=== PATIENT | male | born 1995 | race Caucasian/White ===

== ENCOUNTER 2019-12-08 09:44 | Emergency (ER) | payer SELFPAY ==
[2019-12-08] MEDS ORDERED: Albuterol/Ipratropium 3.0-0.5 MG/3 ML Neb Soln NEB ONE (09:56)
--- NOTE | 2019-12-08 10:49 | EDM.PDOC ---
ED HPI GENERAL MEDICAL PROBLEM - General Chief Complaint: Respiratory Problem Stated Complaint: COUGH, SOB Time Seen by Provider: 12/08/19 10:02 Source of Information: Reports: Patient History Limitations: Reports: No Limitations - History of Present Illness INITIAL COMMENTS - FREE TEXT/NARRATIVE: Pt. presents to ER with complaints of productive cough and NAVARRO for several days. He states that he has had a severe cough. He has felt chilled but has not been checking his temp. He complains of sore throat and sinus congestion. No abdominal pain. No nausea, vomiting, or diarrhea. No rashes. Pt. states that he is a smoker. 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 He states that he has had similar symptoms in the past. He has never been diagnosed with asthma or COPD that he is aware of. Pt. denies any chest pain. Pt. was initially seen in clinic but was sent to ER for a "CT", presumably over concerns of PE. Pt. had no lab-work done at the clinic. Onset Date: 12/05/19 Location: Reports: Chest, Generalized Associated Symptoms: Reports: Cough, cough w sputum, Shortness of Breath (with exertion) - Related Data Allergies Allergy/AdvReac Type Severity Reaction Status Date / Time No Known Allergies Allergy Verified 12/08/19 09:53 Home Meds: Home Meds . [No Known Home Meds] 12/08/19 [History] ED ROS GENERAL - Review of Systems Review Of Systems: See Below Constitutional: Reports: No Symptoms, Fatigue HEENT: Reports: Rhinitis Respiratory: Reports: Cough Cardiovascular: Reports: Dyspnea on Exertion Endocrine: Reports: No Symptoms GI/Abdominal: Reports: No Symptoms : Reports: No Symptoms Musculoskeletal: Reports: No Symptoms Skin: Reports: No Symptoms Neurological: Reports: No Symptoms Psychiatric: Reports: No Symptoms Hematologic/Lymphatic: Reports: No Symptoms Immunologic: Reports: No Symptoms ED EXAM, GENERAL - Physical Exam Exam: See Below Exam Limited By: No Limitations General Appearance: Alert, WD/WN, No Apparent Distress Eye Exam: Bilateral Eye: Conjunctival Injection, EOMI, PERRL Nose: Normal Inspection, Normal Mucosa, No Blood Throat/Mouth: Normal Inspection, Normal Lips, Normal Teeth, Normal Gums, Normal Oropharynx, Normal Voice, No Airway Compromise Head: Atraumatic, Normocephalic Neck: Normal Inspection, Supple, Non-Tender, Full Range of Motion Respiratory/Chest: No Respiratory Distress, No Accessory Muscle Use, Chest Non- Tender, Decreased Breath Sounds, Wheezing Cardiovascular: Normal Peripheral Pulses, Regular Rate, Rhythm, No Edema, No Gallop, No JVD, No Murmur GI/Abdominal: Soft, Non-Tender, No Mass (Male) Exam: Deferred Rectal (Males) Exam: Deferred Extremities: Normal Inspection, Normal Range of Motion, Non-Tender, No Pedal Edema, Normal Capillary Refill Neurological: Alert, Oriented, CN II-XII Intact, Normal Cognition, Normal Gait, Normal Reflexes, No Motor/Sensory Deficits Course - Orders/Labs/Meds Orders: Active Orders 24 hr Category Date Time Status EKG Documentation Completion [RC] STAT Care 12/08/19 09:54 Active RT Aerosol Therapy [RC] ASDIRECTED Care 12/08/19 09:56 Active Labs: Laboratory Tests 12/08/19 12/08/19 12/08/19 Range/Units 09:55 10:28 10:28 WBC 9.7 (4.0-10.0) x10^3/uL RBC 5.09 (4.5-6.0) x10^6/uL Hgb 16.4 (14.0-18.0) g/dL Hct 46.2 (40.0-52.0) % MCV 90.8 (78.0-93.0) fL MCH 32.2 H (26.0-32.0) pg MCHC 35.5 (32.0-36.0) g/dL RDW Coeff of Sergio 12.6 (10.0-15.0) % Plt Count 219 (130-400) x10^3/uL Neut % (Auto) 71.9 (50.0-80.0) % Lymph % (Auto) 17.5 L (25.0-50.0) % Whitman % (Auto) 8.6 (2.0-11.0) % Eos % (Auto) 1.6 (0.0-4.0) % Baso % (Auto) 0.4 (0.2-1.2) % PT 10.4 (9.5-12.3) SEC INR 1.0 L (2.0-3.5) D-Dimer, Quantitative < 0.19 (<=0.58) mg/LFEU Sodium (136-145) mmol/L Potassium (3.5-5.1) mmol/L Chloride (98-107) mmol/L Carbon Dioxide (21-32) mmol/L Anion Gap (10-20) mmol/L BUN (7-18) mg/dL Creatinine (0.70-1.30) mg/dL Est Cr Clr Drug Dosing Estimated GFR (MDRD) Glucose (74-106) mg/dL Calcium (8.5-10.1) mg/dL Corrected Calcium (8.5-10.1) mg/dL Total Bilirubin (0.2-1.0) mg/dL AST (15-37) U/L ALT (16-63) U/L Alkaline Phosphatase (46-116) U/L Troponin I (<=0.056) ng/mL C-Reactive Protein (<=0.9) mg/dL Total Protein (6.4-8.2) g/dL Albumin (3.4-5.0) g/dL Globulin Albumin/Globulin Ratio SARS-CoV-2 RNA (RT-PCR) Negative (NEGATIVE) 12/08/19 Range/Units 10:28 WBC (4.0-10.0) x10^3/uL RBC (4.5-6.0) x10^6/uL Hgb (14.0-18.0) g/dL Hct (40.0-52.0) % MCV (78.0-93.0) fL MCH (26.0-32.0) pg MCHC (32.0-36.0) g/dL RDW Coeff of Sergio (10.0-15.0) % Plt Count (130-400) x10^3/uL Neut % (Auto) (50.0-80.0) % Lymph % (Auto) (25.0-50.0) % Whitman % (Auto) (2.0-11.0) % Eos % (Auto) (0.0-4.0) % Baso % (Auto) (0.2-1.2) % PT (9.5-12.3) SEC INR (2.0-3.5) D-Dimer, Quantitative (<=0.58) mg/LFEU Sodium 141 (136-145) mmol/L Potassium 3.9 (3.5-5.1) mmol/L Chloride 104 (98-107) mmol/L Carbon Dioxide 25 (21-32) mmol/L Anion Gap 15.9 (10-20) mmol/L BUN 7 (7-18) mg/dL Creatinine 1.0 (0.70-1.30) mg/dL Est Cr Clr Drug Dosing TNP Estimated GFR (MDRD) > 60 Glucose 83 (74-106) mg/dL Calcium 8.9 (8.5-10.1) mg/dL Corrected Calcium 8.82 (8.5-10.1) mg/dL Total Bilirubin 0.8 (0.2-1.0) mg/dL AST 19 (15-37) U/L ALT 36 (16-63) U/L Alkaline Phosphatase 89 (46-116) U/L Troponin I < 0.017 (<=0.056) ng/mL C-Reactive Protein 2.2 H (<=0.9) mg/dL Total Protein 8.0 (6.4-8.2) g/dL Albumin 4.1 (3.4-5.0) g/dL Globulin 3.9 Albumin/Globulin Ratio 1.05 SARS-CoV-2 RNA (RT-PCR) (NEGATIVE) Meds: Medications Discontinued Medications Generic Name Dose Route Start Last Admin Trade Name Freq PRN Reason Stop Dose Admin Albuterol/Ipratropium 3 ml 12/08/19 09:56 12/08/19 10:45 Duoneb 3.0-0.5 Mg/3 Ml NEB 12/08/19 09:57 3 ml ONETIME ONE Administration - Radiology Interpretation Free Text/Narrative:: No acute infiltrate or other pathology. Departure - Departure Time of Disposition: 11:15 Disposition: Home, Self-Care 01 Clinical Impression: Bronchitis, Reactive airway disease that is not asthma - Discharge Information Instructions: Upper Respiratory Infection, Adult, Acute Bronchitis, Adult Referrals: PCP,None [Primary Care Provider] - Forms: ED Department Discharge Additional Instructions: Off work today. Make sure you are using good breathing protection when working around dust. Prednisone 40mg once daily Albuterol inhaler 2 puffs every 4-6 hours as needed for cough/congestion. - My Orders Last 24 Hours: My Active Orders 12/08/19 09:54 EKG Documentation Completion [RC] STAT 12/08/19 09:56 RT Aerosol Therapy [RC] ASDIRECTED - Assessment/Plan Last 24 Hours: My Active Orders 12/08/19 09:54 EKG Documentation Completion [RC] STAT 12/08/19 09:56 RT Aerosol Therapy [RC] ASDIRECTED Plan: Off work today. Make sure you are using good breathing protection when working around dust. Prednisone 40mg once daily Albuterol inhaler 2 puffs every 4-6 hours as needed for cough/congestion.
[2019-12-08 10:58] LABS: ANION GAP 15.9 mmol/L (10-20); CHLORIDE,CL 104 mmol/L (98-107); SODIUM,NA 141 mmol/L (136-145)
--- NOTE | 2019-12-08 11:06 | CR ---
[id number] RAD/RAD Chest PA And Lateral EXAM: RAD Chest PA And Lateral INDICATION: COUGH,CHEST CONGESTION. COMPARISON: None. DISCUSSION: Cardiomediastinal silhouette is normal in size and contour. No infiltrate, effusion, pneumothorax, or edema. IMPRESSION: Negative examination of the chest. Tate Morales MD 12/08/19 [id number] Thank you for allowing us to participate in the care of your patient.
== END 2019-12-08 11:17 | disposition home or self-care (01) ==
LOC: VM.ED 09:44 → SUPCPDRO 09:44 → VM.ED 11:17
DX: J45.909 Unspecified asthma, uncomplicated (principal)
CPT/HCPCS: 36415; 71046; 80053; 84484; 85025; 85379; 85610; 86140; 93005; 99284-GF; 99285-25; J7620-GY; U0002